=== PATIENT | female | born 1985 | race Caucasian/White ===

== ENCOUNTER 2018-06-18 09:24 | Emergency (ER) | payer MEDICAID ==
[~2018-06-18] VITALS: Ht 154.9 cm; Wt 83.9 kg
[~2018-06-18 09:24] MED LIST: AMOXICILLIN500 MG PO; AMPICILLIN500 MG PO; LAC PO; MEDDP PO; MOTRIN800 MG PO; PRE20 PO; PROMETHAZINE D118 M1 PO
[2018-06-18 09:51] VITALS: Ht 154.9 cm; Wt 83.9 kg
[2018-06-18 12:53] LABS: CALCIUM 8.2 mg/dL (8.5-10.1); CARBON DIOXIDE 23.9 mmol/L (21-32); CHLORIDE SERUM 107 mmol/L (98-107); CREATININE SERUM 0.7 mg/dL (0.6-1.0); GFR1 > 60 mL/min; GLUCOSE SERUM 92 mg/dL (74-106); POTASSIUM SERUM 3.8 mmol/L (3.5-5.1); SODIUM SERUM 140 mmol/L (136-145)
[2018-06-18 12:54] LABS: AMYLASE 38 U/L (25-115); C REACTIVE PROTEIN 1.1 mg/dL (<=0.9)
[2018-06-18 13:43] LABS: BASOPHIL % 0.3 % (0-2); RED CELL DISTRIBUTION WIDTH 13.3 % (11.5-14.5)
[2018-06-18 13:44] LABS: PLATELET COUNT 435 x10^3mcL (130-400)
[2018-06-18 14:54] VITALS: BP 124/72
== END 2018-06-18 14:54 | disposition home or self-care (01) ==
LOC: ED 09:24
PROVIDERS: Emergency Medicine
DX: E04.1 Nontoxic single thyroid nodule (principal); Q89.2 Congenital malformations of other endocrine glands
CPT/HCPCS: 86308; J1100; J7030; Q9967

== ENCOUNTER 2020-01-20 01:25 | Emergency (ER) | payer MEDICAID ==
[~2020-01-20] VITALS: Ht 154.9 cm; Wt 73.9 kg
[2020-01-20 01:57] VITALS: Ht 154.9 cm; Wt 73.9 kg
[2020-01-20 02:53] LABS: CALCIUM 8.2 mg/dL (8.5-10.1); CARBON DIOXIDE 24.7 mmol/L (21-32); CHLORIDE SERUM 104 mmol/L (98-107); CREATININE SERUM 0.7 mg/dL (0.6-1.0); GFR1 > 60 mL/min; GLUCOSE SERUM 116 mg/dL (74-106); POTASSIUM SERUM 3.8 mmol/L (3.5-5.1); SODIUM SERUM 138 mmol/L (136-145)
[2020-01-20 02:55] LABS: BASOPHIL % 0.4 % (0-2); PLATELET COUNT 398 x10^3mcL (130-400); RED CELL DISTRIBUTION WIDTH 13.3 % (11.5-14.5)
[2020-01-20 02:57] LABS: ALBUMIN 3.5 g/dL (3.4-5.0); ALKALINE PHOSPHATASE 114 U/L (46-116); ALT/SGPT 182 U/L (14-59); AST/SGOT 251 U/L (15-37); BILIRUBIN TOTAL 0.5 mg/dL (0.20-1.00); LIPASE 207 IU/L (73-393); TOTAL PROTEIN, SERUM 6.8 g/dL (6.4-8.2)
[2020-01-20 04:14] VITALS: BP 115/59
== END 2020-01-20 04:47 | disposition home or self-care (01) ==
LOC: ED 01:25
PROVIDERS: Emergency Medicine
DX: K29.70 Gastritis, unspecified, without bleeding (principal)